=== PATIENT | female | born 1980 | race Caucasian/White ===

== ENCOUNTER 2017-08-28 11:52 | Inpatient (IN) | payer SELFPAY ==
[2017-08-28] VITALS (10 sets, daily range): BP systolic 148; BP diastolic 74; PULSE 106–124; RESP 22; TEMP 94; O2SAT 95–100
[2017-08-28] MEDS ORDERED: NOREPINEPHRINE 4 MG/4 ML AMP ONE (12:07)
[2017-08-28 12:16] LABS: AUTOMATED NEUTROPHIL # 1.9 TH/MM3 (1.8-7.7); BASOPHIL # 0.1 TH/MM3 (0-0.2); BASOPHIL % 0.7 % (0.0-2.0); EOSINOPHIL % 0.4 % (0.0-4.0); HEMOGLOBIN 13.6 GM/DL (11.6-15.3); LYMPH % 68.2 % (9.0-44.0); LYMPHOCYTE # 4.9 TH/MM3 (1.0-4.8); MEAN CELL VOLUME 93.3 FL (80.0-100.0); MEAN CORPUSCULAR HEMOGLOBIN 30.9 PG (27.0-34.0); MEAN CORPUSCULAR HGB CONC 33.1 % (32.0-36.0); MEAN PLATELET VOLUME 7.4 FL (7.0-11.0); MONO % 4.2 % (0.0-8.0); MONOCYTE # 0.3 TH/MM3 (0-0.9); NEUT % 26.5 % (16.0-70.0); PLATELET COUNT 197 TH/MM3 (150-450); RED BLOOD COUNT 4.39 MIL/MM3 (4.00-5.30); RED CELL DISTRIBUTION WIDTH 11.9 % (11.6-17.2); WHITE BLOOD COUNT 7.2 TH/MM3 (4.0-11.0)
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
[2017-08-28 12:29] LABS: INTERNATIONAL NORMALIZED RATIO 1.3 RATIO; PROTHROMBIN TIME - PATIENT 13.4 SEC (9.8-11.6)
[2017-08-28] MEDS ORDERED: IOHEXOL 350 MG/ML 10 ML VIAL (for RAD DIAG) IVCONTRAST ONE (12:42)
[2017-08-28] MEDS ORDERED: ENALAPRILAT 1.25 MG/ML VIAL IV PUSH PRN (12:45)
[2017-08-28] MEDS ORDERED: CHLORHEXIDINE GLUCONATE 2 % 1 PACK (2 CLOTHS) TOP PRN (12:45)
[2017-08-28] MEDS ORDERED: SODIUM CHLORIDE 0.9% FLUSH 10 ML FLUSH IV FLUSH PRN (12:45)
[2017-08-28] MEDS ORDERED: MISCELLANEOUS NURSING INFORMATION XX SCH (12:45)
[2017-08-28] MEDS ORDERED: ONDANSETRON HCL 4 MG/2 ML VIAL IV PUSH PRN (12:45)
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
[2017-08-28 12:47] LABS: BANDS 5 % (0-6); BASOPHILS 1 % (0-2); LYMPHOCYTES 67 % (9-44); METAMYELOCYTES 1 % (0-1); MONOCYTES 2 % (0-8); NEUTROPHIL # MANUAL DIFF 2.2 TH/MM3 (1.8-7.7); POLYS (SEG NEUTROPHILS) 24 % (16-70)
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
[2017-08-28] MEDS: SODIUM CHLOR 0.9% 1000 ML INJ 1,000 ML IV SCH ×2 (13:00→20:02)
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
[2017-08-28] MEDS ORDERED: NOREPINEPHRINE-DEXTROSE DRIP 250 ML IV ONE (13:49)
[2017-08-28] MEDS ORDERED: SODIUM BICARBONATE 8.4% INJ 50 MEQ/50 ML SYR ONE (14:16)
[2017-08-28] MEDS ORDERED: SODIUM BICARBONATE 8.4% INJ 50 MEQ/50 ML SYR IV PUSH ONE ×2 (15:00→15:15)
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
[2017-08-28] MEDS: PANTOPRAZOLE SODIUM 40 MG VIAL IVP SCH (15:57)
[2017-08-28] MEDS ORDERED: TERBUTALINE INJ 1 MG/ML AMP SQ PRN ×2 (16:00→22:00)
[2017-08-28] MEDS ORDERED: ALBUMIN 5% INJ 500 ML IV ONE (16:00)
[2017-08-28] MEDS ORDERED: NOREPINEPHRINE INJ 4 MG in SODIUM CHLOR 0.9% 250 ML INJ 246 ML IV PRN (16:00)
[2017-08-28] MEDS: SODIUM CHLORIDE IV PRN ×4 (17:20→19:30)
[2017-08-28] MEDS: NOREPINEPHRINE IV PRN ×4 (17:20→19:30)
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
[2017-08-28] MEDS ORDERED: PHENYLEPHRINE HCL 10 MG/ML VIAL ONE (19:49)
[2017-08-28] MEDS: PHENYLEPHRINE 40 MG in D5W 500 ML IV PRN (19:50)
[2017-08-28] MEDS: CHLORHEXIDINE 0.12% (ORAL KIT) 15 ML CUP MT SCH (20:00)
[2017-08-28] MEDS: levETIRAcetam INJ 500 MG in SODIUM CHLORIDE 0.9% INJ 100 ML IV SCH (20:01)
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
[2017-08-28] MEDS: CHLORHEXIDINE GLUCONATE 2 % 1 PACK (2 CLOTHS) TOP SCH (23:36)
[2017-08-29] VITALS (16 sets, daily range): BP systolic 53–139; BP diastolic 50–75; PULSE 100–124; RESP 10–22; TEMP 96.4–100.4; O2SAT 96–100
--- NOTE | 2017-08-29 03:53 | RADRPT ---
EXAM DATE/TIME: 08/29/2017 03:03 [facility] COMPARISON: CHEST SINGLE AP, August 28, 2017, 11:53. INDICATIONS : Trauma. MEDICAL HISTORY : None. SURGICAL HISTORY : None. ENCOUNTER: Subsequent ACUITY: 1 day PAIN SCORE: Non-responsive. LOCATION: Bilateral chest FINDINGS: Single AP view of the chest. Endotracheal tube remains in place. Lungs are clear. No evidence of pleu ral effusion or pneumothorax. Cardiomediastinal silhouette within normal limits. CONCLUSION: Endotracheal tube in place. Lungs are clear. Jayjay Ledesma MD on August 29, 2017 at 3:49 Board Certified Radiologist. This report was verified electronically.
[2017-08-29 06:41] LABS: AUTOMATED NEUTROPHIL # 15.2 TH/MM3 (1.8-7.7); BASOPHIL # 0.1 TH/MM3 (0-0.2); BASOPHIL % 0.3 % (0.0-2.0); EOSINOPHIL % 0.2 % (0.0-4.0); HEMATOCRIT 34.2 % (35.0-46.0); HEMOGLOBIN 11.7 GM/DL (11.6-15.3); LYMPH % 17.3 % (9.0-44.0); LYMPHOCYTE # 3.5 TH/MM3 (1.0-4.8); MEAN CELL VOLUME 91.1 FL (80.0-100.0); MEAN CORPUSCULAR HEMOGLOBIN 31.2 PG (27.0-34.0); MEAN CORPUSCULAR HGB CONC 34.2 % (32.0-36.0); MEAN PLATELET VOLUME 7.1 FL (7.0-11.0); MONO % 7.9 % (0.0-8.0); MONOCYTE # 1.6 TH/MM3 (0-0.9); NEUT % 74.3 % (16.0-70.0); PLATELET COUNT 223 TH/MM3 (150-450); RED BLOOD COUNT 3.75 MIL/MM3 (4.00-5.30); RED CELL DISTRIBUTION WIDTH 12.4 % (11.6-17.2); WHITE BLOOD COUNT 20.4 TH/MM3 (4.0-11.0)
[2017-08-29] MEDS: SODIUM CHLORIDE IV PRN ×10 (06:48→20:29)
[2017-08-29] MEDS: PHENYLEPHRINE 40 MG in D5W 500 ML IV PRN ×3 (06:48→22:30)
[2017-08-29] MEDS: NOREPINEPHRINE IV PRN ×10 (06:48→20:29)
[2017-08-29] MEDS: SODIUM CHLOR 0.9% 1000 ML INJ 1,000 ML IV SCH ×2 (06:49→17:42)
[2017-08-29 07:32] LABS: BICARBONATE 19.4 MEQ/L (21.0-32.0); CALCIUM 7.1 MG/DL (8.5-10.1); CREATININE 1.92 MG/DL (0.50-1.00)
[2017-08-29 07:46] LABS: TOTAL PROTEIN 5.4 GM/DL (6.4-8.2)
[2017-08-29] MEDS: CHLORHEXIDINE 0.12% (ORAL KIT) 15 ML CUP MT SCH ×2 (08:00→20:28)
[2017-08-29] MEDS: levETIRAcetam INJ 500 MG in SODIUM CHLORIDE 0.9% INJ 100 ML IV SCH ×2 (09:43→20:28)
[2017-08-29] MEDS ORDERED: SODIUM BICARBONATE 8.4% INJ 50 MEQ/50 ML SYR ONE (10:44)
[2017-08-29] MEDS ORDERED: SODIUM BICARBONATE 8.4% INJ 50 MEQ/50 ML SYR IV PUSH ONE (11:15)
[2017-08-29] MEDS: PANTOPRAZOLE SODIUM 40 MG VIAL IVP SCH ×2 (13:38→17:24)
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
[2017-08-29] MEDS: DESMOPRESSIN ACETATE 4 MCG/ML VIAL SQ SCH ×2 (15:00→21:00)
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
[2017-08-29] MEDS: CHLORHEXIDINE GLUCONATE 2 % 1 PACK (2 CLOTHS) TOP SCH (20:28)
[2017-08-30] VITALS (8 sets, daily range): BP systolic 120–136; BP diastolic 56–64; PULSE 84–106; RESP 10; TEMP 97.9–99; O2SAT 98–100
[2017-08-30 03:41] LABS: AUTOMATED NEUTROPHIL # 17.8 TH/MM3 (1.8-7.7); BASOPHIL # 0.1 TH/MM3 (0-0.2); BASOPHIL % 0.4 % (0.0-2.0); EOSINOPHIL % 0.1 % (0.0-4.0); HEMATOCRIT 32.5 % (35.0-46.0); HEMOGLOBIN 11.1 GM/DL (11.6-15.3); LYMPH % 4.7 % (9.0-44.0); LYMPHOCYTE # 0.9 TH/MM3 (1.0-4.8); MEAN CORPUSCULAR HEMOGLOBIN 30.6 PG (27.0-34.0); MEAN PLATELET VOLUME 7.1 FL (7.0-11.0); MONO % 5.3 % (0.0-8.0); MONOCYTE # 1.1 TH/MM3 (0-0.9); NEUT % 89.5 % (16.0-70.0); PLATELET COUNT 174 TH/MM3 (150-450); RED BLOOD COUNT 3.62 MIL/MM3 (4.00-5.30); RED CELL DISTRIBUTION WIDTH 12.9 % (11.6-17.2); WHITE BLOOD COUNT 19.9 TH/MM3 (4.0-11.0)
[2017-08-30] MEDS: NOREPINEPHRINE IV PRN ×2 (04:08)
[2017-08-30] MEDS: SODIUM CHLORIDE IV PRN ×2 (04:08)
[2017-08-30 04:13] LABS: ALBUMIN 2.3 GM/DL (3.4-5.0); BICARBONATE 22.9 MEQ/L (21.0-32.0); CALCIUM 7.2 MG/DL (8.5-10.1); CALCIUM-PROTEIN CORRECTED 8.3 MG/DL (8.5-10.1); CREATININE 1.07 MG/DL (0.50-1.00); TOTAL BILIRUBIN ADULT 0.6 MG/DL (0.2-1.0); TOTAL PROTEIN 5.1 GM/DL (6.4-8.2)
[2017-08-30] MEDS: SODIUM CHLOR 0.9% 1000 ML INJ 1,000 ML IV SCH (04:55)
[2017-08-30] MEDS: CHLORHEXIDINE 0.12% (ORAL KIT) 15 ML CUP MT SCH (08:00)
[2017-08-30] MEDS: levETIRAcetam INJ 500 MG in SODIUM CHLORIDE 0.9% INJ 100 ML IV SCH (08:08)
[2017-08-30] MEDS: DESMOPRESSIN ACETATE 4 MCG/ML VIAL SQ SCH (08:08)
--- NOTE | 2017-08-30 12:45 | PD.PROCEDR ---
Central Line Procedure REASON FOR PROCEDURE Central venous access PROCEDURE PERFORMED Central line placement: Left subclavian central line CONSENT Informed consent for procedure was obtained and time out performed. The risks and benefits of the procedure were discussed to include but limited to bleeding , clot formation, infection, and even . ANESTHESIA Local injection of 1% Lidocaine DESCRIPTION OF THE PROCEDURE The patient was placed in supine, mild Trendelenburg position. The area was exposed and cleansed with ChloraPrep, times two. Large sterile drape was used to cover the patient, with the site exposed, under sterile conditions including cap, face mask, sterile gown, and sterile gloves. On single attempt, the introducer needle was inserted with negative pressure in syringe and venous flash was obtained. The guide wire was then advanced without any restriction and the needle was removed. The dilator was used without any complications. Using Seldinger technique the 20 cm 7F triple lumen catheter was advanced over the guide wire to a depth of 18 centimeters. The guide wire was removed. All ports were aspirated with dark venous blood return and flushed easily with sterile saline. All ports were capped. Antibiotic disc was placed around central line at puncture site. The central line was secured to the skin with two interrupted 2.0 silk sutures. The area was bandaged with sterile see- through central line bandage. COMPLICATIONS: No apparent complications ESTIMATED BLOOD LOSS: Less than 1 cc. Genny Lancaster MD Aug 30, 2017 12:45
[2017-08-31] MEDS ORDERED: HEPARIN-NS/PF FLUSH BAG 1,000 ML IV FLUSH ONE ×2 (12:36→12:37)
== END 2017-09-01 07:15 | disposition expired | DRG 82 ==
LOC: NEPI 11:52 → NEDA 12:16 → EDBD 12:16 → N03A 13:05
PROVIDERS: ADMIT Surgery; ATTEND Surgery
PROC: 5A1945Z Respiratory Ventilation, 24-96 Consecutive Hours (ICD-10-PCS; principal; 2017-08-28)
PROC: 0BH17EZ Insertion of Endotracheal Airway into Trachea, Via Natural or Artificial Opening (ICD-10-PCS; 2017-08-28)
PROC: 05H633Z Insertion of Infusion Device into Left Subclavian Vein, Percutaneous Approach (ICD-10-PCS; 2017-08-30)
DX: S06.6X9A Traumatic subarachnoid hemorrhage with loss of consciousness of unspecified duration, initial encounter (principal); J96.90 Respiratory failure, unspecified, unspecified whether with hypoxia or hypercapnia; I46.9 Cardiac arrest, cause unspecified; S01.84XA Puncture wound with foreign body of other part of head, initial encounter; S06.1X9A Traumatic cerebral edema with loss of consciousness of unspecified duration, initial encounter; R40.2430 Glasgow coma scale score 3-8, unspecified time; G93.89 Other specified disorders of brain
CPT/HCPCS: 31500; 36430; 36600; 51702; 70450; 71045; 71260; 72125; 78606; 80048; 80053; 82805; 84155; 85007; 85025; 85027; 85610; 85730; 86850; 86900; 86901; 86920; 94002; 94003; 96374; 96375; 99291; A9539; C9113; G0390; J1644; J1953; J2370; J2597; J7030; J7050; J7060; L0172; P9016; P9045; Q9967